=== PATIENT | female | born 1950 | race Two or more races ===

== ENCOUNTER → 2017-04-04 | Outpatient (CLI) | payer MEDICARE, OTHER ==
[~2017-04-04] VITALS: Ht 154.9 cm; Wt 92.4 kg
[~2017-04-04] MED LIST: AMLO-511 PO; ASPI81TA33 PO; FURO20 PO; INSLAN SQ; INSNOV SQ; ISOS30TA6 PO; METO25XL PO; NIAC-8 PO; SULF1TAB42 PO
[2017-04-04 11:00] VITALS: BP 131/59
== END | disposition home or self-care (01) ==
LOC: HBOWC 10:35
PROVIDERS: ATTEND Podiatrist
DX: I70.242 Atherosclerosis of native arteries of left leg with ulceration of calf (principal); E11.622 Type 2 diabetes mellitus with other skin ulcer; L97.221 Non-pressure chronic ulcer of left calf limited to breakdown of skin
CPT/HCPCS: 97597

== ENCOUNTER → 2017-04-25 | Outpatient (CLI) | payer MEDICARE, OTHER ==
[2017-04-25 09:30] VITALS: BP 121/52
== END | disposition home or self-care (01) ==
LOC: HBOWC 09:00
PROVIDERS: ATTEND Podiatrist
DX: E11.622 Type 2 diabetes mellitus with other skin ulcer (principal); L97.221 Non-pressure chronic ulcer of left calf limited to breakdown of skin

== ENCOUNTER → 2017-05-09 | Outpatient (CLI) | payer MEDICARE, OTHER ==
[~2017-05-09] MED LIST changes: +LIDOCAINE HCL 4% 50 ML SOLUTION TP ONE; -SULF1TAB42 PO
[2017-05-09 10:12] VITALS: BP 136/60
== END | disposition home or self-care (01) ==
LOC: HBOWC 09:50
PROVIDERS: ATTEND Podiatrist
DX: I70.242 Atherosclerosis of native arteries of left leg with ulceration of calf (principal); E11.622 Type 2 diabetes mellitus with other skin ulcer; L97.221 Non-pressure chronic ulcer of left calf limited to breakdown of skin

== ENCOUNTER → 2017-05-15 | Outpatient (CLI) | payer MEDICARE, OTHER ==
[~2017-05-15] MED LIST changes: +COLLAGENASE 250 UNITS/GM 30 GM OINTMENT TP ONE; +LIDOCAINE HCL 2% 5 ML JELLY ONE; +LIDOCAINE HCL 4% 50 ML SOLUTION ONE; -LIDOCAINE HCL 4% 50 ML SOLUTION TP ONE
[2017-05-15 10:24] VITALS: BP 130/52
== END | disposition home or self-care (01) ==
LOC: HBOWC 09:54
PROVIDERS: ATTEND Nurse Practitioner Adult Health
DX: E11.621 Type 2 diabetes mellitus with foot ulcer (principal); L97.521 Non-pressure chronic ulcer of other part of left foot limited to breakdown of skin
CPT/HCPCS: 11042; Z7610

== ENCOUNTER → 2017-05-23 | Outpatient (CLI) | payer MEDICARE, OTHER ==
[~2017-05-23] MED LIST changes: +ATOR40TA28 PO; -COLLAGENASE 250 UNITS/GM 30 GM OINTMENT TP ONE; -LIDOCAINE HCL 2% 5 ML JELLY ONE; -LIDOCAINE HCL 4% 50 ML SOLUTION ONE; +RANO500T3 PO
[2017-05-23 11:59] VITALS: BP 134/65
== END | disposition home or self-care (01) ==
LOC: HBOWC 11:03
PROVIDERS: ATTEND Podiatrist
DX: E11.621 Type 2 diabetes mellitus with foot ulcer (principal); L97.521 Non-pressure chronic ulcer of other part of left foot limited to breakdown of skin; E11.622 Type 2 diabetes mellitus with other skin ulcer; L97.221 Non-pressure chronic ulcer of left calf limited to breakdown of skin; I77.1 Stricture of artery; I87.2 Venous insufficiency (chronic) (peripheral)
CPT/HCPCS: 97597

== ENCOUNTER → 2017-05-30 | Outpatient (CLI) | payer MEDICARE, OTHER ==
[2017-05-30 12:13] VITALS: BP 123/69
== END | disposition home or self-care (01) ==
LOC: HBOWC 10:58
PROVIDERS: ATTEND Podiatrist
DX: E11.621 Type 2 diabetes mellitus with foot ulcer (principal); L97.521 Non-pressure chronic ulcer of other part of left foot limited to breakdown of skin; E11.622 Type 2 diabetes mellitus with other skin ulcer; L97.821 Non-pressure chronic ulcer of other part of left lower leg limited to breakdown of skin; I87.2 Venous insufficiency (chronic) (peripheral); I77.1 Stricture of artery
CPT/HCPCS: 97597

== ENCOUNTER → 2017-06-06 | Outpatient (CLI) | payer MEDICARE, OTHER ==
[2017-06-06 12:13] VITALS: BP 138/67
== END | disposition home or self-care (01) ==
LOC: HBOWC 10:26
PROVIDERS: ATTEND Podiatrist
DX: E11.621 Type 2 diabetes mellitus with foot ulcer (principal); L97.521 Non-pressure chronic ulcer of other part of left foot limited to breakdown of skin; I77.1 Stricture of artery
CPT/HCPCS: 11042

== ENCOUNTER → 2017-06-13 | Outpatient (CLI) | payer MEDICARE, OTHER ==
[~2017-06-13] MED LIST changes: -ASPI81TA33 PO; +ASPI81TA87 PO
[2017-06-13 11:25] VITALS: BP 100/59
== END | disposition home or self-care (01) ==
LOC: HBOWC 11:22
PROVIDERS: ATTEND Podiatrist
DX: E11.621 Type 2 diabetes mellitus with foot ulcer (principal); L97.521 Non-pressure chronic ulcer of other part of left foot limited to breakdown of skin; E11.622 Type 2 diabetes mellitus with other skin ulcer; L97.221 Non-pressure chronic ulcer of left calf limited to breakdown of skin; I77.1 Stricture of artery; I87.2 Venous insufficiency (chronic) (peripheral)
CPT/HCPCS: 11042

== ENCOUNTER → 2017-06-20 | Outpatient (CLI) | payer MEDICARE, OTHER ==
[2017-06-20 10:53] VITALS: BP 107/57
== END | disposition home or self-care (01) ==
LOC: HBOWC 10:32
PROVIDERS: ATTEND Podiatrist
DX: E11.622 Type 2 diabetes mellitus with other skin ulcer (principal); L97.221 Non-pressure chronic ulcer of left calf limited to breakdown of skin; E11.621 Type 2 diabetes mellitus with foot ulcer; L97.521 Non-pressure chronic ulcer of other part of left foot limited to breakdown of skin; I87.2 Venous insufficiency (chronic) (peripheral); B35.1 Tinea unguium; I77.1 Stricture of artery
CPT/HCPCS: 11042

== ENCOUNTER → 2017-07-04 | Outpatient (CLI) | payer MEDICARE, OTHER ==
[2017-07-04 10:33] VITALS: BP 126/62
== END | disposition home or self-care (01) ==
LOC: HBOWC 10:18
PROVIDERS: ATTEND Podiatrist
DX: E11.621 Type 2 diabetes mellitus with foot ulcer (principal); L97.521 Non-pressure chronic ulcer of other part of left foot limited to breakdown of skin; I77.1 Stricture of artery; I87.2 Venous insufficiency (chronic) (peripheral)
CPT/HCPCS: 11042

== ENCOUNTER → 2017-08-01 | Outpatient (CLI) | payer MEDICARE, OTHER ==
[2017-08-01 11:42] VITALS: BP_SYST 101; BP_SYST 96; BP_DIAS 58; BP_DIAS 68
== END | disposition home or self-care (01) ==
LOC: HBOWC 10:57
PROVIDERS: ATTEND Podiatrist
DX: S81.802D Unspecified open wound, left lower leg, subsequent encounter (principal); I87.2 Venous insufficiency (chronic) (peripheral); X58.XXXD Exposure to other specified factors, subsequent encounter